=== PATIENT | female | born 1990 | race Caucasian/White ===

== ENCOUNTER 2017-12-22 10:07 | Emergency (ER) | payer SELFPAY ==
[~2017-12-22] VITALS: Ht 160 cm; Wt 55.0 kg
[2017-12-22 10:10] VITALS: BP 138/73; PULSE 75; RESP 20; TEMP 98.7; O2SAT 97
[2017-12-22] MEDS ORDERED: RESP: ALBUTEROL 2.5 MG/IPRATROPIUM 0.5 MG NEB (SCH) NEB ONE (10:45)
[2017-12-22] MEDS ORDERED: DEXAMETHASONE SOD PHOS 4 MG/ML VIAL IM ONE (10:45)
--- NOTE | 2017-12-22 10:50 | PD ---
HPI Chief Complaint: Cold / Flu Symptoms Time Seen by Provider: 10:35 Travel History International Travel<30 days: No Contact w/Intl Traveler<30days: No Traveled to known affect area: No History of Present Illness HPI 27-year-old female presents to the emergency room for evaluation of nonproductive cough, wheezing, and nasal congestion for the past 2 weeks. States the wheezing makes her feel short of breath. Patient has tried several [id number] medications without relief in symptoms. She denies history of asthma. States she does smoke cigarettes. She had temperatures of 100 at the beginning of the illness but the symptoms resolved. She denies any chronic medical conditions or daily medications. [facility] Social History Tobacco Use: Yes Allergies-Medications (Allergen,Severity, Reaction): Coded Allergies: No Known Allergies (Unverified , 12/22/17) Reported Meds & Prescriptions Reported Meds & Active Scripts Active No Active Prescriptions or Reported Medications Review of Systems Except as stated in HPI: all other systems reviewed are Neg Physical Exam Narrative GENERAL: Well-nourished, well-developed female no acute distress. Afebrile. Ambulatory. SKIN: Focused skin assessment warm/dry. HEAD: Normocephalic. EYES: No scleral icterus. No injection or drainage. NECK: Supple, trachea midline. No JVD or lymphadenopathy. ENT: Mucosa pink and moist. No erythema or exudates. No uvular edema. No uvular , palatal, or tonsillar deviation. Airway patent. CARDIOVASCULAR: Regular rate and rhythm without murmurs, gallops, or rubs. RESPIRATORY: Breath sounds equal bilaterally. No accessory muscle use. Bilateral expiratory wheezes, rales, and rhonchi. Data Data Last Documented VS Vital Signs Date Time Temp Pulse Resp B/P (MAP) Pulse Ox O2 Delivery O2 Flow Rate FiO2 12/22/17 10:10 98.7 75 20 138/73 (94) 97 Orders Orders Albuterol-Ipratropium Neb (Duoneb Neb) (12/22/17 10:45) Dexamethasone Inj (Decadron Inj) (12/22/17 10:45) MDM Medical Decision Making Medical Screen Exam Complete: Yes Emergency Medical Condition: Yes Medical Record Reviewed: Yes Differential Diagnosis Bronchitis, pneumonia, asthma exacerbation Narrative Course 27-year-old otherwise healthy female presents to the emergency room for evaluation of nonproductive cough, congestion, and wheezing for the past 2 weeks. No fevers. Physical exam reveals bilateral expiratory wheezes, rhonchi , and rales. Vital signs stable. Patient is overall very well-appearing and has no increased work of breathing. She was given Decadron and 2 duo nebs in the emergency room with significant relief in symptoms. Discharged with prescriptions for prednisone and albuterol. Patient was also given azithromycin because of persistence of symptoms and lung exam and for its anti- inflammatory effect. She was told to follow-up with a primary care physician or return for worsening symptoms. She understands and agrees to plan. Diagnosis Primary Impression: Bronchitis Referrals: Primary Care Physician Additional Instructions: Rest and drink plenty of fluids. Take azithromycin as directed, until gone. Take prednisone as directed, until gone. Start tomorrow. Use inhaler as directed, as needed for shortness of breath or wheezing. Follow up with a primary care physician. Return to emergency room for worsening symptoms, as discussed. Med/Other Pt SpecificInfo: Prescription(s) given Scripts No Active Prescriptions or Reported Meds Disposition: 01 DISCHARGE HOME Condition: Stable Najma Grady Dec 22, 2017 10:50
[2017-12-22] MEDS ORDERED: PRED20 PO (10:51)
[2017-12-22] MEDS ORDERED: VENTAER INH (10:51)
[2017-12-22] MEDS ORDERED: AZIT250T3 PO (10:51)
== END 2017-12-22 11:37 | disposition home or self-care (01) ==
LOC: NEPK 10:07
DX: J40 Bronchitis, not specified as acute or chronic (principal); F17.210 Nicotine dependence, cigarettes, uncomplicated
CPT/HCPCS: 94664; 96372; 99283; J1100